=== PATIENT | female | born 1995 | race Caucasian/White ===

== ENCOUNTER 2016-09-08 17:47 | Inpatient (IN) | payer BC ==
[~2016-09-08] VITALS: Ht 170.1 cm; Wt 56.9 kg
--- NOTE | ~2016-09-08 | O ---
[place], [place] OPERATIVE NOTE NAME: RAFAEL MAST UNIT #: [id number] ROOM: 508 DOCTOR: JORDON LACEY MD BIRTHDATE: [birth year] DOS: 09/09/2016 PREOPERATIVE DIAGNOSIS: Acute appendicitis. POSTOPERATIVE DIAGNOSIS: Acute appendicitis. PROCEDURE: Laparoscopic appendectomy. SURGEON: Jordon Lacey MD PUBLIC WORKS TECHNICIAN: [id number]. ANESTHESIA: General with endotracheal intubation. INDICATIONS: This is a 20-year-old lady with a history of abdominal pain and was found to have acute appendicitis who is here for the above-mentioned procedure. The procedure and its complications explained to the patient in detail preoperatively. Complications that were discussed included but were not limited to bleeding, infection, hematoma/seroma/abscess formation, prolonged postoperative pain, damage to underlying vital structures and inadvertent injury to surrounding vital structures and incisional hernia formation. She agreed to proceed. DESCRIPTION OF PROCEDURE: After identifying the patient, the patient was brought to the operating suite and laid in the supine position. After IV anesthesia was administered by the anesthesia team, a timeout procedure was called. A Garcia catheter was placed in the usual sterile fashion and a left upper extremity was stuck to the patient's side parts were then painted and draped in the usual sterile fashion. An incision above the umbilicus in the curvilinear fashion was made. The skin and the subcutaneous tissue were incised. The fascia was incised and 2 stay sutures with 0 Vicryl were taken on either side. A 12 mm Harsha port was introduced and a pneumoperitoneum was created. Under direct vision, a left lower quadrant incision of 10 mm and suprapubic incision of 5 mm was made and appropriate size ports were introduced. The patient was placed in Trendelenburg, right side up position. The appendix was identified, and it was found to be in acutely inflamed. It was held up with the help of an Endo Thelma forceps and the base of the appendix as well as the mesoappendix was then stapled across with the help of Endo-MARY stapler. The appendix/specimen was placed in an EndoCatch bag and removed from the peritoneal cavity and sent for histopathological diagnosis. Thereafter, the base of the appendix was visualized for any bleeding and small areas of bleeding were cauterized. Thereafter, normal bleeding was visualized the suprapubic and the left lower quadrant ports were removed and there was no bleeding seen. The umbilical port was also removed and the pneumoperitoneum was decompressed. The 2 stay sutures were tied together. An additional stitch with 0 Vicryl was taken in order to close the fascia. The subcutaneous tissue was irrigated and the edges of the skin were approximated with the help of 4-0 Vicryl in a subcuticular fashion after the edges of the skin were infiltrated with local anesthesia (1% plain lidocaine). The Garcia catheter was removed and the patient was taken to the recovery room in stable fashion. There were no complications. [place], [place] OPERATIVE NOTE NAME: RAFAEL MAST UNIT #: [id number] ROOM: 8 DOCTOR: JORDON LACEY MD BIRTHDATE: [birth year] Dr. Jordon Lacey, the attending surgeon, was present throughout the operating case. Jordon Lacey MD CM:OPRECORD:OPERATIVE NOTE [id number] JORDON LACEY MD 09/09/16 1102 interface
[2016-09-08 18:07] VITALS: BP 110/66
[2016-09-08] MEDS ORDERED: TRI-SPRINTEC 281 TA2 PO (18:08)
[2016-09-08] MEDS ORDERED: ETODOLAC500 MG PO ×2 (18:08→23:48)
[2016-09-08 19:21] LABS: BASO # 0.1 10*3/uL (0.0-0.1); BASO % 0.3 % (0.0-1.0); EOS % 0.1 % (1.0-4.0); HEMATOCRIT 43.1 % (37.0-47.0); HEMOGLOBIN 14.4 g/dl (12.0-16.0); IG # 0.1 10*3/uL (0.0-0.1); LYMPH # 1.2 10*3/uL (1.3-4.4); LYMPH % 7.8 % (27.0-41.0); MEAN CELL VOLUME 90.2 fl (81.0-99.0); MEAN CORPUSCULAR HGB 30.1 pg (27.0-31.0); MEAN CORPUSCULAR HGB CONC 33.4 g/dl (33.0-37.0); MEAN PLATELET VOLUME 10.4 fl (9.6-12.3); MONO # 0.8 10*3/uL (0.1-1.0); NEUT # 13.5 10*3/uL (2.3-7.9); NEUT % 86.4 % (47.0-73.0); PLATELET COUNT AUTOMATED 166 10*3/uL (130-400); RED BLOOD COUNT 4.78 10*6/uL (4.10-5.10); RED CELL DISTRI WIDTH 12.1 % (0-14.5); WHITE BLOOD COUNT 15.6 10*3/uL (4.8-10.8)
[2016-09-08 19:23] LABS: BILIRUBIN NEGATIVE (NEGATIVE); BLOOD TRACE-INTACT (NEGATIVE); CLARITY CLEAR (CLEAR); COLOR YELLOW (YELLOW); GLUCOSE NEGATIVE (NEGATIVE); KETONE NEGATIVE (NEGATIVE); LEUKO ESTERASE NEGATIVE (NEGATIVE); NITRITE NEGATIVE (NEGATIVE); PROTEIN NEGATIVE (NEGATIVE); SPECIFIC GRAVITY <= 1.005 (1.005-1.030); UROBILINOGEN 0.2 E.U./dl (0.2-1.0)
[2016-09-08 19:29] LABS: BACTERIA TRACE; EPITHELIAL CELLS 25-30; WBC 0-2 wbc/hpf (0-5)
[2016-09-08 19:30] LABS: URINE REFLEX COMMENT NO (NO)
[2016-09-08 19:36] LABS: ALKALINE PHOSPHATASE 58 U/L (45-117); BILIRUBIN, TOTAL 1.6 mg/dl (0.2-1.0); BUN 6 mg/dl (7-24); CARBON DIOXIDE 25 mmol/L (21-32); CHLORIDE 103 mmol/L (98-107); EST GLOM FILT AFRICAN AMERICAN > 60 ml/min; GLUCOSE 99 mg/dL (65-99); POTASSIUM 4.1 mmol/L (3.5-5.1); SGOT/AST 13 IU/L (3-35); SGPT/ALT 29 U/L (12-78); SODIUM 140 mmol/L (136-145); TOTAL PROTEIN 7.8 gm/dL (6.4-8.2)
[2016-09-08 21:30] VITALS: BP 106/64
[2016-09-08 22:25] VITALS: BP 121/63
[2016-09-09] VITALS (8 sets, daily range): BP systolic 111–123; BP diastolic 52–70
[2016-09-09 04:30] LABS: BASO % 0.4 % (0.0-1.0); EOS # 0.3 10*3/uL (0.0-0.4); EOS % 2.7 % (1.0-4.0); LYMPH # 2.4 10*3/uL (1.3-4.4); MEAN CELL VOLUME 91.9 fl (81.0-99.0); MEAN CORPUSCULAR HGB 29.9 pg (27.0-31.0); MEAN CORPUSCULAR HGB CONC 32.6 g/dl (33.0-37.0); MEAN PLATELET VOLUME 10.6 fl (9.6-12.3); MONO # 0.9 10*3/uL (0.1-1.0); MONO % 8.2 % (3.0-9.0); NEUT # 7.3 10*3/uL (2.3-7.9); NEUT % 66.4 % (47.0-73.0); PLATELET COUNT AUTOMATED 126 10*3/uL (130-400); RED BLOOD COUNT 3.81 10*6/uL (4.10-5.10); RED CELL DISTRI WIDTH 12.2 % (0-14.5); WHITE BLOOD COUNT 11.1 10*3/uL (4.8-10.8)
[2016-09-09 04:31] LABS: HEMOGLOBIN 11.4 g/dl (12.0-16.0)
[2016-09-09 05:00] LABS: ALBUMIN 2.8 gm/dl (3.1-4.5); ALKALINE PHOSPHATASE 42 U/L (45-117); BILIRUBIN, TOTAL 1.3 mg/dl (0.2-1.0); BUN 8 mg/dl (7-24); CARBON DIOXIDE 26 mmol/L (21-32); CHLORIDE 108 mmol/L (98-107); EST GLOM FILT AFRICAN AMERICAN > 60 ml/min; FREE T4 1.23 ng/dl (0.76-1.46); GLUCOSE 95 mg/dL (65-99); MAGNESIUM 1.9 mg/dL (1.5-2.1); PHOSPHOROUS 3.6 mg/dL (2.5-4.9); POTASSIUM 3.8 mmol/L (3.5-5.1); SGOT/AST 11 IU/L (3-35); SGPT/ALT 19 U/L (12-78); SODIUM 142 mmol/L (136-145); TOTAL PROTEIN 5.7 gm/dL (6.4-8.2)
[2016-09-09 06:06] LABS: PROTHROMBIN TIME 11.1 SECONDS (9.0-12.4)
[2016-09-09 07:30] LABS: FOLIC ACID 10.74 ng/mL (>5.38); VITAMIN D, 25-HYDROXY 40.6 ng/mL (30-100)
== END 2016-09-09 18:57 | disposition home or self-care (01) | DRG 854 ==
LOC: ED 17:48 → EDHOLD 21:33 → 5E 21:33
PROVIDERS: Nurse Practitioner Family; Student in an Organized Health Care Education/Training Program
PROC: 0DTJ4ZZ Resection of Appendix, Percutaneous Endoscopic Approach (ICD-10-PCS; principal; 2016-09-09)
DX: A41.9 Sepsis, unspecified organism (principal); E44.0 Moderate protein-calorie malnutrition; K35.89 Other acute appendicitis; R31.29 Other microscopic hematuria; E80.6 Other disorders of bilirubin metabolism; Z91.040 Latex allergy status; Z87.81 Personal history of (healed) traumatic fracture; Z83.3 Family history of diabetes mellitus; Z81.8 Family history of other mental and behavioral disorders

== ENCOUNTER → 2024-03-04 | Outpatient (CLI) | payer BC ==
[~2024-03-04] MED LIST: ETODOLAC500 MG PO; TRI-SPRINTEC 281 TA2 PO
== END | disposition home or self-care (01) ==
LOC: US 14:28
PROVIDERS: ATTEND Nurse Practitioner
DX: R10.11 Right upper quadrant pain (principal)